=== PATIENT | female | born 1945 | race Caucasian/White ===

== ENCOUNTER 2016-11-13 13:07 | Outpatient (CLI) | payer MEDICARE, MEDICAID ==
[2016-11-13 16:54] VITALS: BP 127/76
== END 2016-11-13 15:00 | disposition home or self-care (01) ==
LOC: D.OPS 13:07
DX: M81.0 Age-related osteoporosis without current pathological fracture (principal)

== ENCOUNTER 2017-05-01 11:18 | Outpatient (CLI) | payer MEDICARE, MEDICAID | END 2017-05-01 11:55 | LOC: D.OPS 11:18 | DX: M81.0 Age-related osteoporosis without current pathological fracture (principal) ==

== ENCOUNTER 2017-11-26 11:05 | Outpatient (CLI) | payer MEDICARE, MEDICAID ==
[~2017-11-26] VITALS: Ht 162.6 cm; Wt 58.2 kg
[2017-11-26 11:39] VITALS: BP 140/39; Ht 162.6 cm; Wt 58.2 kg
== END 2017-11-26 13:00 | disposition home or self-care (01) ==
LOC: D.OPS 11:05
DX: M81.0 Age-related osteoporosis without current pathological fracture (principal)